=== PATIENT | female | born 1970 | race Caucasian/White ===

== ENCOUNTER 2016-12-02 11:22 | Emergency (ER) | payer OTHER ==
--- NOTE | ~2016-12-02 | ER ---
PATIENT'S NAME: [facility] AGE: 46 Y [address] ROOM: [place] [id number] LOCATION: [facility] ADMIT DATE: 12/02/2016 ER/Outpatient Report DISCHARGE DATE: 12/02/2016 FAMILY PHYSICIAN: Physician, Unknown ATTENDING PHYSICIAN: Tamara Gilliam TIME OF ARRIVAL: 1122 hours. TIME SEEN: 1122 hours. IDENTIFICATION: A 46-year-old female. CHIEF COMPLAINT: Field Code Blue. HISTORY OF PRESENT ILLNESS: The patient is a 46-year-old female who was being brought in by [facility]. She called the ambulance apparently because of pain that was epigastric pain radiating straight through to her back. However, she has had some shortness of breath and been treated for bronchitis here recently. She had a prescription for, I believe, her medication list stated, cefdinir prescribed on November 15. She was seen here on November 02 with an allergic reaction. Normal EKG and enzymes at that time. She was short of breath. Her saturations were 82% on room air when the [facility] picked her up. They did call for mutual aide, and before we had met up with them, she had lost her pulse and respirations. On arrival with [facility], she was agonal respirations, PEA. ACLS protocol was initiated. Chest compressions per the Pako device were continued. Epinephrine was given IV. The patient was intubated. On arrival here to the emergency room, she is intubated with an ET tube. Breath sounds are equal. No sounds of her epigastrium, with bag-valve mask. No cardiac activity. Abdomen is protuberant, but not really distended. Pupils are fixed and dilated. She has received no medications other than epinephrine, and she has received 5 epi prior to arrival. ACLS protocol was followed per the code team. Epinephrine, chest compressions, and ventilations were provided. Cardiology consultation was obtained prehospital, and Dr. Verde was present. The code was initiated in the field at approximately 1050 hours. Resuscitative efforts were futile with no return of spontaneous circulation. She was asystole at 1134 hours and again at 1137 hours. Time of was declared at 1138 hours after reviewing her records. ALLERGIES: UNKNOWN. PATIENT'S NAME: GEE [facility] AGE: 46 Y [address] ROOM: [place] [id number] LOCATION: [facility] ADMIT DATE: 12/02/2016 ER/Outpatient Report DISCHARGE DATE: 12/02/2016 FAMILY PHYSICIAN: Physician, Unknown ATTENDING PHYSICIAN: Tamara Gilliam CURRENT MEDICATIONS: 1. Sprintec and cefdinir were initiated on November 15. 2. Zyrtec 10 mg daily. 3. Sinus pain relief. 4. Omeprazole 40 mg daily. 5. Ibuprofen p.r.n. 6. Effexor XR 150 mg daily. 7. Aspirin 81 mg daily. Her note in the ER on November 02 indicated that she had recently been on a cruise, had just gotten back prior to that, so she has had travel within the last one month. FAMILY HISTORY: Unknown. SOCIAL HISTORY: The patient is and lives in [place]. She has 3 children; 1 in high school, 2 just out of high school. Tobacco use: None. Alcohol and drug use: None noted in old records. PHYSICAL EXAMINATION: VITAL SIGNS: Weight 113 kg and temperature 95.5. HEENT: Pupils are fixed and dilated. She is cyanotic from about the mid chest up. LUNGS: Breath sounds are equal. HEART: No cardiac activity. ABDOMEN: Protuberant, but soft. Nondistended. EXTREMITIES: No appreciable edema. TIME OF : 1138 hours. CAUSE OF : Probable PE. Other contributing factors include recent travel, estrogen usage, and obesity. The patient's was notified. Law Enforcement was notified, and an autopsy will be performed. TAMARA GILLIAM MD CAR/modl PATIENT'S NAME: [facility]EE [facility] AGE: 46 Y [address] ROOM: [place] [id number] LOCATION: [facility] ADMIT DATE: 12/02/2016 ER/Outpatient Report DISCHARGE DATE: 12/02/2016 FAMILY PHYSICIAN: Physician, Unknown ATTENDING PHYSICIAN: Tamara Gilliam /[id number] d: 12/03/16 1506 t: 12/10/16 0853, OUTPATIENT REPORT
== END 2016-12-02 11:38 | disposition expired ==
LOC: GMED 11:22
DX: I46.9 Cardiac arrest, cause unspecified (principal)
CPT/HCPCS: J0171

== ENCOUNTER → 2016-12-02 | Outpatient (CLI) | payer OTHER | END | disposition disaster alternative care site (69) | LOC: GAMB 10:50 | DX: I46.9 Cardiac arrest, cause unspecified (principal); R06.9 Unspecified abnormalities of breathing; R10.9 Unspecified abdominal pain; M54.9 Dorsalgia, unspecified ==